=== PATIENT | female | born 1955 | race Caucasian/White ===

== ENCOUNTER 2022-11-05 11:12 | Emergency (ER) | payer MEDICARE ==
[~2022-11-05] VITALS: Ht 172.7 cm; Wt 112.6 kg
--- NOTE | ~2022-11-05 | EKG ---
[facility] [address] [facility], [place] [address] Draft EK completed, results pending confirmation PATIENT NAME: BALA MIGUEL MAGDALENO Electrocardiogram DATE OF : 53 PHYSICIAN: PRELIMINARY REPORT #: [id number] REPORT IS CONFIDENTIAL AND NOT TO BE RELEASED WITHOUT AUTHORIZATION
[~2022-11-05 11:12] MED LIST: BENZTROPINE MESY1 MG PO; DONEPEZIL HCL5 MG PO; ESCITALOPRAM OX10 MG PO; GABAPENTIN100 MG PO; GABAPENTIN400 MG PO; HALOPERIDOL5 MG PO; LISINOPRIL-HCT1 EAC2 PO; LISINOPRIL2.5 MG PO; METOPROLOL SUCC50 MG PO; ULTRA-LIGHT RO1 EACH MISC
--- OUTSIDE RECORDS SUMMARY | 2022-11-05 11:15 | XMS ---
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 ED/UCC VISIT TRACKING (12 MO.) 11/05/2022 11:[address] [facility] OR TYPE: Emergency COMPLAINT: - ABD PAIN INPATIENT VISIT TRACKING (12 MO.) No inpatient visits to display in this time frame [email or web address]
[2022-11-05] MEDS ORDERED: AUGMENTIN 500-1 EACH PO (14:45)
== END 2022-11-05 14:54 | disposition home or self-care (01) ==
LOC: ED 11:12
DX: K57.32 Diverticulitis of large intestine without perforation or abscess without bleeding (principal); I10 Essential (primary) hypertension; Z87.891 Personal history of nicotine dependence; Z88.6 Allergy status to analgesic agent; Z88.8 Allergy status to other drugs, medicaments and biological substances; Z88.1 Allergy status to other antibiotic agents; Z79.899 Other long term (current) drug therapy
CPT/HCPCS: 74176; 80053; 83690; 85025; 93005; 93010; 99284-25

== ENCOUNTER 2023-05-30 05:50 | Day surgery (SDC) | payer MEDICARE ==
[2023-05-27 09:34] VITALS: BP 132/71
[~2023-05-30] VITALS: Ht 172.7 cm; Wt 90.9 kg
[~2023-05-30 05:50] MED LIST changes: +AUGMENTIN 500-1 EACH PO; +PLAVIX75 MG PO
[2023-05-30 06:05] VITALS: BP 146/74
[2023-05-30 08:23] VITALS: BP 118/71
--- NOTE | 2023-05-30 09:12 | NUR ---
05/30/23 0912 Crystal Camargo 0803- PT ARRIVES TO UNIT FROM OR VIA STRETCHER. PT RESTING ON LFT SIDE AND ON 2L OF O2 VIA NC AT THIS TIME, O2 >90% VIA PULSE OX. PT IS NONRESPONSIVE TO TACTILE STIMULI AT THIS TIME AND SLIGHT AUDIBLE SNORE HEARD. PT RESPIRATIONS ARE EVEN AND UNLABORED, NO SIGNS OF DISTRESS. REPORT RECEIVED FROM TERRY CATALAN AT BEDSIDE. 0804- PT TITRATED FROM 2L OF O2 VIA NC TO RA AT THIS TIME, O2 SATS >90%, RESPIRATIONS EVEN AND UNLABORED AT THIS TIME. PT REMAINS UNRESPONSIVE TO TACTILE STIMULI AT THIS TIME. 0812- PT EYES REMAINED CLOSED, RESPIRATIONS EVEN AND UNLABORED AT THIS TIME. PT ACTIVELY PASSING GAS WITHOUT DIFFICULTY, ABDOMEN SOFT. 0813- PT AWAKENS TO VERBAL STIMULI AT THIS TIME AND STATES "I GOTTA POOP, I GOTTA GO TO THE BATHROOM", PT ENCOURAGED TO PASS GAS AT THIS TIME AND EDUCATED ABOUT INFLATION OF ABDOMEN DURING PROCEDURE. PT ENCOURAGED TO REST UNTIL ABLE TO SAFELY STAND. 0814- JASON CARRASCO AT BEDSIDE DISCUSSING PROCEDURE WITH PT AT THIS TIME. PT ASKS QUESTIONS APPROPRIATELY, NO FURTHER QUESTIONS FOR MD AT THIS TIME. 0820- PT GAIT SLIGHTLY UNSTEADY. PT STATES NO DIZZINESS OR NAUSEA W/AMBULATION. PT TO BATHROOM VIA WC AND 1PA TO RESTROOM AT THIS TIME. PT CONTINUES TO ACTIVELY PASS GAS AND SMALL AMOUNT OF CLEAR DRAINAGE. DEPENDS IN PLACE. 0825- PT GETTING DRESSED AT THIS TIME. 0839- PT BACK TO BATHROOM W/1PA AND WC. PT GAIT REMAINS SLIGHTLY UNSTEADY (BASELINE). 0852- DISCHARGE EDUCATION PROVIDED, PT READ EDUCATION WELL. PT STATES NO FURTHER QUESTIONS OR NEEDS AT THIS TIME. ALL BELONGINGS IN PT POSSESSION, INCLUDING DISCHARGE EDUCATION. EDUCATION PROVIDED TO PT CRISTY AT THIS TIME. PT 1PA TO PASSENGER SIDE OF 'S VEHICLE.
--- NOTE | 2023-05-30 10:10 | OR ---
[facility] [address] [place], [place] [address] Signed DATE OF OPERATION: 05/30/2023 SURGEON: Ana Rosa Gomez MD PREOPERATIVE DIAGNOSES: 1. History of hyperplastic colonic polyps in 2004 and 2013. 2. Diverticulosis. 3. Internal hemorrhoids. 4. Change in bowel habits with loose stool/diarrhea. POSTOPERATIVE DIAGNOSES: 1. 4 mm polyp at 60 cm in the left colon. 2. Minimal to moderate left-sided diverticulosis. 3. Minimal internal hemorrhoids. PROCEDURE: Colonoscopy with cold biopsies x3 and hot biopsy ESTIMATED BLOOD LOSS: None. INDICATIONS: Nancy is a 68-year-old female with a long history of schizophrenia and other medical issues. She had been asked to see me for followup colonoscopy. She is describing a change in bowel habits with loose stool if not diarrhea. We know she has a history of hyperplastic colonic polyps in 2004 and 2013. She also has diverticulosis and internal hemorrhoids. She has also developed some weakness in the legs and is waiting to see the neurologist here in the weeks ahead. For longer distances, she has to use a wheelchair. She told me she can stand just long enough to take the shower at home. She has no family history of colon cancer or polyps. In the office, I had given her a pamphlet on colonoscopy. I reviewed that with Nancy and her Braden. They understand the nature of the test. There is risk including, but not limited to gas bloating, crampy abdominal pain, bleeding, perforation requiring surgery, and missed diagnosis. We also reviewed the written instructions for the bowel prep line by line. We also asked for monitored anesthesia care given her overall size, very full round face, heavy chest and abdomen and her advanced medical issues. She had expressed understanding and wished to proceed. PROCEDURE NOTE: Nancy was taken into our endoscopy suite and placed in the left lateral decubitus Electronically Signed By: ANA ROSA GOMEZ MD 05/30/23 1010 PATIENT NAME: NANCY MIGUEL OPERATIVE REPORT DATE OF : 53 REPORT #: [id number] PHYSICIAN: ANA ROSA GOMEZ MD PCP: ROCIO OLIVARES MD REPORT IS CONFIDENTIAL AND NOT TO BE RELEASED WITHOUT AUTHORIZATION [facility] [address] [place] [id number] Signed position. She was given monitored anesthesia care per our nurse scudding inspector. A digital rectal exam was performed and this was unremarkable. No external hemorrhoids. Her sphincter tone was average. There were no masses. The adult colonoscope was introduced and advanced all around into the cecum under direct visualization of the camera without difficulty. Her prep was quite excellent. We could easily see the appendiceal orifice and ileocecal valve. The scope was then slowly withdrawn. We took pictures throughout for photodocumentation. She had just a small 4 mm polyp at 60 cm in the left colon. It was easily removed with the hot biopsy forceps. She does have diverticula in the left and sigmoid colon. They were average size, few in number and scattered about. In the rectum, the scope was retroflexed and she has very minimal internal hemorrhoid columns. After this, the gas was suctioned out and the colonoscope removed. Nancy tolerated the procedure quite well. RECOMMENDATIONS: I will see Nancy back in my office in the next 7 to 14 days to review her results. She will always need monitored anesthesia care in the future. Ana Rosa Gomez MD [facility]/MODL /[id number] cc: MD Ana Rosa Tse MD Copies: ANA ROSA GOMEZ MD ~ Electronically Signed By: ANA ROSA GOMEZ MD 05/30/23 1010 PATIENT NAME: NANCY MIGUEL MAGDALENO OPERATIVE REPORT DATE OF : 53 REPORT #: [id number] PHYSICIAN: ANA ROSA GOMEZ MD PCP: ROCIO OLIVARES MD REPORT IS CONFIDENTIAL AND NOT TO BE RELEASED WITHOUT AUTHORIZATION
--- NOTE | 2023-05-30 11:22 | NUR ---
PT EXHIBITING SOME CONFUSION AND DISORIENTATION. DID NOT VISIT TO MINIMIZE CONFUSION. SAID SILENT PRAYER FOR SUCCESSFUL PROCEDURE AND ONGOING HEALING FROM OUTSIDE ROOM.
--- NOTE | 2023-06-03 15:14 | PATH ---
[facility] [address] [place] [address] Signed SPECIMEN(S): A DESCENDING/LEFT COLON POLYP AT 60 CM SPECIMEN(S): B COLON BIOPSY SPECIMEN SOURCE: A. DESCENDING/LEFT COLON POLYP AT 60 CM B. COLON BIOPSY CLINICAL HISTORY: Polyps, diarrhea, IH, polyp x 1, diverticulosis, IH FINAL PATHOLOGIC DIAGNOSIS: A. Descending / left colon polyp at 60 cm: - Tubular adenoma (one fragment). B. Colon biopsy: - Benign colonic mucosa, negative for pathologic inflammation. VR:[facility] MICROSCOPIC EXAMINATION: Histologic sections of all submitted blocks are examined by light microscopy. These findings, together with the gross examination, support the pathologic diagnosis. GROSS DESCRIPTION: A. The specimen, labeled and designated "Chelly, T, " and designated on the requisition "colon, descending/left polypectomy at 60 cm," is received in formalin and consists of 1 jay soft tissue fragment measuring 0.2 x 0.4 cm and is submitted entirely in (A1). B. The specimen, labeled and designated "Chelly, T, colon (NOS) biopsy," is received in formalin and consists of 3 jay soft tissue fragments measuring 0.3 x 0.4 cm in greatest dimension, all specimens are submitted entirely in (B1). [facility] (under the direct supervision of a pathologist) The Gross Description was prepared using a voice recognition system. The report was reviewed for accuracy; however, sound-alike word errors, addition and/or deletions may occur. If there is any question about this report, please contact Client Services. PERFORMING LABORATORY: Technical component was performed by [facility], [address] [place] [id number] (CLIA# [id number]). Professional interpretation was performed by [facility] [place] [facility], PATIENT NAME: BALA MIGUEL PATHOLOGY DATE OF : 53 REPORT #: [id number] PHYSICIAN: [facility] PCP: ROCIO OLIVARES MD REPORT IS CONFIDENTIAL AND NOT TO BE RELEASED WITHOUT AUTHORIZATION [facility] [address] [place], [place] [address] S[address] [place] [address] (CLIA#: [id number]). Diagnostician: Zachary Thornton MD Pathologist Electronically Signed 06/03/2023 Copies: ~ PATIENT NAME: BALA MIGUEL MAGDALENO PATHOLOGY DATE OF : 53 REPORT #: [id number] PHYSICIAN: [facility] PCP: ROCIO OLIVARES MD REPORT IS CONFIDENTIAL AND NOT TO BE RELEASED WITHOUT AUTHORIZATION
== END 2023-05-30 08:52 | disposition home or self-care (01) ==
LOC: OPS 05:50 → DS 05:50 → OPS 07:30 → DS 07:30 → OPS 08:52
PROVIDERS: ATTEND Colon & Rectal Surgery
PROC: 0DBE8ZX Excision of Large Intestine, Via Natural or Artificial Opening Endoscopic, Diagnostic (ICD-10-PCS; 2023-05-30)
PROC: 0DBM8ZZ Excision of Descending Colon, Via Natural or Artificial Opening Endoscopic (ICD-10-PCS; principal; 2023-05-30 07:30)
DX: D12.4 Benign neoplasm of descending colon (principal); K57.30 Diverticulosis of large intestine without perforation or abscess without bleeding; K64.8 Other hemorrhoids
CPT/HCPCS: 00811; 88305; J2704; J7121